=== PATIENT | male | born 1960 | race Caucasian/White ===

== ENCOUNTER 2016-10-13 10:27 | Inpatient (IN) | payer MEDICARE ==
[~2016-10-13] VITALS: Ht 193 cm; Wt 109.0 kg
[~2016-10-13 10:27] MED LIST: DIAZ2TAB PO; GABA300C PO; GLU500 PO; IBUP200T48 PO; SILD100T PO
[2016-10-13 10:29] VITALS: BP 137/90; PULSE 120; RESP 18; O2SAT 98
--- NOTE | 2016-10-13 10:37 | ED.REPORT ---
HPI-General Illness Date of Service Oct 13, 2016 ED Provider: Rich Richardson Patient is a 56 year old male with a hx of DM and HTN who presents to the ED complaining of abdominal pain onset 2 weeks ago s/p an inguinal hernia repair 2 weeks ago while on vacation in [place]. Associated symptoms include vomiting , diarrhea, chills, and generalized weakness. His pain is localized to his lower abdomen, sharp and burning in quality, waxes and wanes, wakes him from sleep, and is severe. He denies testicular pain, hematochezia, rash, itching, sore throat, chest pain, cough, hematuria, chest pain, headache, bleeding, sore throat, or any other symptoms. Patient has not been on abx recently. Nursing Notes Stated Complaint: ABDOMINAL PAIN Chief Complaint: Male Abdominal Pain Nursing Notes Reviewed: Yes Allergies: Coded Allergies: No Known Allergies (Unverified Allergy, Unknown, 04/08/15) Scheduled Gabapentin-Expunged Drug, Do Not Renew! (Neurontin-Expunged Drug, Do Not Renew! ) 300 Mg Capsule 300 MG PO BID IBUPROFEN-Expunged Drug, Do Not Renew! (IBUPROFEN-Expunged Drug, Do Not Renew!) 200 Mg Tablet 1 TAB PO Q6HP TAKE W/FOOD Metformin-Expunged Drug, Do Not Renew! (Metformin-Expunged Drug, Do Not Renew!) 500 Mg Tablet 500 MG PO BID TAKE WITH EVENING MEAL Sildenafil Citrate-Expunged Drug, Do Not Piero (Viagra-Expunged Drug, Do Not Renew!) 100 Mg Tablet 25-100 MG PO DAILYP TAKE APPR. 1 HRS B-4 SEXUAL ACTIVITY Scheduled PRN Diazepam (Valium) 2 Mg Tablet 2 MG PO TID PRN PRN For Anxiety General Time Seen by MD: 10:37 Chief Complaint Abdominal pain Hx Obtained From: Patient Arrived By: Walk-in Sudden in Onset?: Yes Onset Occurred: More than a week ago... (2 weeks) Context of Onset: Other (surgery ) Symptom Duration: Since onset Location: : Abdomen Quality: Burning, Sharp Severity: Current: Severe Severity: Maximum: Severe Associated with: Reports: Vomiting, Weakness Additional Notes: diarrhea, chills Pertinent Negative: Pt denies other symptoms Relieved by: Prescription meds Context Related History: Reports Diabetes mellitus Recent Healthcare: Recent doctor visit, Previous surgery Past Medical History Past Medical History Sleep apnea, Diabetes mellitus type 2, hypertension. DJD Past Surgical History Bilat hand surg R knee surg hernia repair Family History noncontributory Smoking History Never Smoker Social History Alcohol Use: 3-5 per day Drug Use: Denies drug use Other Social History: Local resident Ambulatory Status Independent Review of Systems Full Review of Systems Constitutional: Reports: Chills, Weakness - generalized Ears / Nose / Throat: Denies: Sore throat Respiratory: Denies: Non-productive cough Cardiovascular: Denies: Chest pain GI: Reports: Abdominal pain, Diarrhea, Denies: Hematochezia Male: Denies Hematuria, Denies Testicular pain Hematologic: Denies Bleeding Skin: Denies Rash Allergy / Immune: Denies: Itching Neurologic: Denies: Headache Complete sys rev & neg: except as marked. Physical Exam Nursing note and vitals reviewed. Constitutional: Well-developed, well-nourished. Not diaphoretic. Head: Normocephalic and atraumatic. Mouth/Throat: Oropharynx is clear and moist. No oropharyngeal exudate. Eyes: EOM are normal. Pupils are equal, round, and reactive to light. Neck: Supple, no tracheal deviation. Cardiovascular: Tachycardic, regular rhythm. Equal and intact distal pulses throughout. Pulmonary/Chest: Effort normal and breath sounds normal. No respiratory distress. Abdominal: Soft. No distension. Lower abdominal tenderness. Surgical site healing well. No rebound or guarding. I did not appreciate any inguinal hernias. Musculoskeletal: Range of motion grossly intact, moving all extremities. No edema or tenderness appreciated. Neurological: AOx3. Grossly nonfocal exam. Strength and sensation intact and equal to bilateral upper and lower extremities. Skin: Warm and dry, no rashes or pallor appreciated. Psychiatric: Appropriate mood and affect. Behavior appears normal. Vital Signs Vital Signs Date Time Temp Pulse Resp B/P Pulse Ox O2 Delivery O2 Flow Rate FiO2 10/13/16 14:33 36.7 114 16 155/91 97 Room Air 10/13/16 11:32 36.7 101 16 157/89 99 Room Air 10/13/16 10:29 36.5 120 18 137/90 98 Interpretation & Diagnostics Lab Results Interpretation Result Diagram: 10/13/16 1050 10/13/16 1050 Test 10/13/16 10:50 9/5/17 11:45 White Blood Count 10.7th/mm3 (3.8-10.1) Red Blood Count 5.20mil/mm3 (4.40-5.80) Hemoglobin 16.4g/dL (13.8-17.2) Hematocrit 44.9% (41.0-50.0) Mean Corpuscular Volume 86.3fL (81-100) Mean Corpuscular Hemoglobin 31.5pg (27.0-35.0) Mean Corpuscular Hemoglobin Concent 36.5% (32.0-37.0) Red Cell Distribution Width 13.1% (12.3-15.4) Platelet Count 238bil/L (150-400) Neutrophils (%) (Auto) 79.5% (40-74) Lymphocytes (%) (Auto) 9.3% (14-46) Monocytes (%) (Auto) 9.7% (4-12) Eosinophils (%) (Auto) 0.8% (0-5) Basophils (%) (Auto) 0.4% (0-3) Prothrombin Time 10.5sec (8.1-12.5) Prothromb Time International Ratio 0.98ratio Magnesium Level 1.3mg/dL (1.6-2.6) Urine Color Yellow (YELLOW) Urine Appearance Clear (CLEAR,HAZY) Urine pH 6.0 (5.0-8.0) Urine Specific [place] 1.025 (1.003-1.035) Urine Protein Negativemg/dL (NEG,TRACE) Urine Glucose (UA) >=1000mg/dL (NEGATIVE) Urine Ketones Negativemg/dL (NEGATIVE) Urine Occult Blood Negative (NEGATIVE) Urine Nitrite Negative (NEGATIVE) Urine Bilirubin Negative (NEGATIVE) Urine Urobilinogen Normalmg/dL (NORMAL) Urine Leukocyte Esterase Negative (NEGATIVE) Urine RBC 0-2/hpf (0-2) Urine WBC 0-5/hpf (0-5) Urine Epithelial Cells None/hpf (NONE-MOD) Urine Crystals None seen (NONE SEEN) Urine Bacteria None/hpf (NONE-FEW) Urine Hyaline Casts Occasional/lpf (NONE) Urine Granular Casts None seen (NONE SEEN) Urine Waxy Casts None seen (NONE SEEN) Urine Red Blood Cell Casts None seen (NONE SEEN) Urine White Blood Cell Casts None seen (NONE SEEN) Urine Mucus None seen (None Seen) Urine Trichomonas None seen (NONE SEEN) Urine Yeast None (NONE SEEN) Urinalysis Comment None Urine Culture Reflexed Not indicated ECG Interpretation ECG Interpretation: Sinus tachycardia rate 105 Time: 10:45 Interpreted by: ED physician X-Ray Chest Interpretation Chest Xray Interpretation: IMPRESSION: 1. No acute cardiopulmonary disease. Dictated by: Layo Guillen M.D. on 10/13/2016 at 11:18 Approved by: Layo Guillen M.D. on 10/13/2016 at 11:18 View: Portable, 1 view Interpretation / Wet Read by: Interpret - Radiologist CT Abd / Pelvis Interpretation IMPRESSION: 1. No definite acute abnormality of the abdomen or pelvis. 2. No bowel obstruction. 3. No free fluid or abscess. Additional findings: -Hepatic steatosis. -Simple left renal cyst. -Small fat containing bilateral inguinal hernias. -Degenerative changes of the imaged spine and pelvic joints. -Proximal anterior left thigh lipoma. Dictated by: Tk Sky M.D. on 10/13/2016 at 11:34 Approved by: Tk Sky M.D. on 10/13/2016 at 11:38 Study type: Abdominal CT IV contrast, Abdom CT oral contrast Interpretation / Wet Read by: Interpret - Radiologist Re-Eval/Medical Decision Med Decision/Clinical Course In summary, 56-year-old male presenting to the ED for evaluation of lower abdominal pain in the setting of recent hernia repair in [place] several weeks ago. Differential is broad and includes intra-abdominal mass/abscess, appendicitis, hernia, surgical complication, small bowel obstruction, viral illness, etc. Surgical site appears to be healing well with laparoscopic sites clean, dry, and intact. Cannot appreciate a hernia on examination. CT scan as per above, no obvious acute abnormality that would account for his symptoms at this time. He does have small, fat-containing bilateral inguinal hernias, hepatic state ptosis, a left renal cyst, and a proximal anterior left thigh lipoma; these were discussed with the patient. Laboratory studies here notable for a sodium of 127, magnesium of 1.3, lactic acid 2.5, white blood cell count of 10.7. Urinalysis not consistent with infection. Chest x-ray negative. EKG demonstrates sinus tachycardia without acute ischemic changes. Patient given IV fluids, Zofran, pain meds, and magnesium supplementation here in the emergency department. After several liters of IV fluids, no improvement in symptoms and remains tachycardic. Abdomen remains tender. He has had some diarrhea with these symptoms and may have a viral illness, however in the setting of significant dehydration, inability to tolerate by mouth intake, as well as the above metabolic abnormalities, plan admission for further management and evaluation. Stool PCR ordered and pending. Patient agreeable to the plan as stated, no further questions. Time of Eval: 14:06 Re-Evaluation/Progress Note: Discussed plan for admission. Patient understands and agrees with plan. All questions addressed at this time. Consultation : Referral / Consult Name: Annette Win MD Consulted With: Hospitalist Call Returned at: 14:42 Parcel Contractor: Will see patient, Agrees with eval, Agrees with plan, Accepts admit Note: Discussed pt's case. Accepts admit. Counseled Regarding: Diagnosis, Lab results, Need for admission Discharge & Departure Primary Impression: Hypernatremia Additional Impressions: Hypomagnesemia Nausea vomiting and diarrhea Dehydration Disposition: ADMITTED TO HOSPITAL Discharge Condition All VS Reviewed: Yes Condition: Stable Referrals: Jin Contreras MD (PCP) Margaritoibkendall Attestation Portions of this note were transcribed by Chase Ortiz. I, Dr. Richardson personally performed the history, physical exam and medical decision-making; I reviewed and confirmed the accuracy of the information in the transcribed note. Signed by: Tari Winslow, 10/13/16 copies to: Jin Contreras MD, William B MD Oct 13, 2016 10:37 CHASE ORTIZ Oct 13, 2016 11:49 1. No definite acute abnormality of the abdomen or pelvis. 2. No bowel obstruction. 3. No free fluid or abscess. Additional findings: -Hepatic steatosis. -Simple left renal cyst. -Small fat containing bilateral inguinal hernias. -Degenerative changes of the imaged spine and pelvic joints. -Proximal anterior left thigh lipoma. Dictated by: Tk Sky M.D. on 10/13/2016 at 11:34 Approved by: Tk Sky M.D. on 10/13/2016 at 11:38 Study type: Abdominal CT IV contrast, Abdom CT oral contrast Interpretation / Wet Read by: Interpret - Radiologist Re-Eval/Medical Decision Med Decision/Clinical Course given MG, fluids, pain meds, zofran. ekg: Sinus tachycardia rate [address] ABD PELVIS: IMPRESSION: 1. No definite acute abnormality of the abdomen or pelvis. 2. No bowel obstruction. 3. No free fluid or abscess. Additional findings: -Hepatic steatosis. -Simple left renal cyst. -Small fat containing bilateral inguinal hernias. -Degenerative changes of the imaged spine and pelvic joints. -Proximal anterior left thigh lipoma. labs: na 127 anion gap 17 glucose 235 lactic 2.5 mg 1.3 WBC 10.7 UA neg infection Time of Eval: 14:06 Re-Evaluation/Progress Note: Discussed plan for admission. Patient understands and agrees with plan. All questions addressed at this time. Consultation : Referral / Consult Name: Annette Win MD Consulted With: Hospitalist Call Returned at: 14:42 Parcel Contractor: Will see patient, Agrees with eval, Agrees with plan, Accepts admit Note: Discussed pt's case. Accepts admit. Counseled Regarding: Diagnosis, Lab results, Need for admission Discharge & Departure Primary Impression: Hypernatremia Additional Impressions: Hypomagnesemia Nausea vomiting and diarrhea Dehydration Disposition: ADMITTED TO HOSPITAL Discharge Condition All VS Reviewed: Yes Condition: Stable Referrals: Jin Contreras MD (PCP) Tari Attestation Portions of this note were transcribed by Chase Ortiz. I, Dr. Richardson personally performed the history, physical exam and medical decision-making; I reviewed and confirmed the accuracy of the information in the transcribed note. Signed by: Tari Winslow, 10/13/16 copies to: Jin Contreras MD, William B MD Oct 13, 2016 10:37 CHASE ORTIZ Oct 13, 2016 11:49
[2016-10-13] MEDS ORDERED: 0.9% Sodium Chloride 1,000 ML IV ONE ×2 (10:38→14:10)
[2016-10-13] MEDS ORDERED: Ondansetron 2 mg/mL 2 mL Inj ONE (10:39)
[2016-10-13 11:02] LABS: BASOPHILS % (AUTO) 0.4 % (0-3); EOSINOPHILS % (AUTO) 0.8 % (0-5); MONOCYTES % (AUTO) 9.7 % (4-12); Mean Corpuscular Hemoglobin 31.5 pg (27.0-35.0); Mean Corpuscular Volume 86.3 fL (81-100); NEUTROPHILS % (AUTO) 79.5 % (40-74); Platelet Count 238 bil/L (150-400)
[2016-10-13] MEDS: Ondansetron 2 mg/mL 2 mL Inj IVPUSH PRN ×3 (11:03→14:36)
--- NOTE | 2016-10-13 11:20 | DRSVH ---
PROCEDURE: X-RAY CHEST ONE VIEW, PORTABLE ([id number]) INDICATIONS: abd pain, recent hernia repair TECHNIQUE: One view of the chest was acquired. COMPARISON: [facility], , CHEST 2VW, 01/02/2014, 20:51. FINDINGS: Surgical changes and devices: None. Lungs and pleura: No pleural effusions or pneumothorax. Lungs are clear. Mediastinum: Mediastinal contours appear normal. Heart size is normal. Bones and chest wall: No suspicious bony lesions. Overlying soft tissues appear unremarkable. IMPRESSION: 1. No acute cardiopulmonary disease. Dictated by: Layo Guillen M.D. on 10/13/2016 at 11:18 Approved by: Layo Guillen M.D. on 10/13/2016 at 11:18
[2016-10-13 11:32] VITALS: BP 157/89; PULSE 101; RESP 16; O2SAT 99
[2016-10-13 11:37] LABS: INR 0.98 ratio
[2016-10-13 11:44] LABS: Magnesium 1.3 mg/dL (1.6-2.6)
[2016-10-13 12:23] LABS: APPEARANCE,URINE CLEAR (CLEAR,HAZY); COLOR,URINE YELLOW (YELLOW); OCCULT BLOOD,URINE NEGATIVE (NEGATIVE)
[2016-10-13 12:24] LABS: UROBILINOGEN,URINE NORMAL (NORMAL)
--- NOTE | 2016-10-13 12:40 | DRSVH ---
PROCEDURE: CT ABDOMEN AND PELVIS WITH CONTRAST ([id number]) INDICATIONS: severe abd pain, recent hernia surgery TECHNIQUE: After the administration of oral and intravenous contrast, 5 mm thick sections acquired from the diap hragms to the symphysis. 5 mm thick coronal and sagittal reformats were performed. For radiation do se reduction, the following was used: automated exposure control, adjustment of mA and/or kV accordi ng to patient size. COMPARISON: [facility], CT, CT ABD PELVIS WO CON, 09/30/2014, 11:43. FINDINGS: Image quality: Diagnostic. ABDOMEN: Lung bases: Lung bases are clear. Heart size is normal. Solid organs: The liver is hypodense when compared to the spleen. Kidneys are normal in size. Mild perinephric edema is present. A simple superior left renal cyst is noted. The pancreas and adrenals are within normal limits. Peritoneum and bowel: The stomach, duodenum, and remainder of the small bowel loops are nondilated. The colon is relatively decompressed. There is no free fluid, loculated fluid collection or free air . Nodes and vessels: No retroperitoneal or mesenteric adenopathy. Aorta and inferior vena cava are no rmal in caliber. There is mild aortic atherosclerosis. Bones: Straightening of the normal lumbar lordosis is present. There are mild/moderate degenerative changes of the lumbar spine. No acute fracture or suspicious osseous lesion is evident. PELVIS: Genitourinary: Bladder wall thickness is normal. Miscellaneous: There are small fat containing bilateral inguinal hernias. No free fluid, loculated f luid collection or lymphadenopathy. No free air. Incidental note is made of a 3.3 x 4.8 cm lipomato us lesion along the anterior margin of the left upper thigh within the intertrochanteric region, whic h probably is not significantly changed, given differences in imaging technique since the prior study . Bones: No suspicious bony lesions. No acute pelvic fractures are evident. There are moderate degen erative changes of the sacroiliac joints and mild to moderate degenerative changes of bilateral hips and pubis symphysis. IMPRESSION: 1. No definite acute abnormality of the abdomen or pelvis. 2. No bowel obstruction. 3. No free fluid or abscess. Additional findings: -Hepatic steatosis. -Simple left renal cyst. -Small fat containing bilateral inguinal hernias. -Degenerative changes of the imaged spine and pelvic joints. -Proximal anterior left thigh lipoma. Dictated by: Tk Sky M.D. on 10/13/2016 at 11:34 Approved by: Tk Sky M.D. on 10/13/2016 at 11:38
[2016-10-13] MEDS ORDERED: Magnesium Sulf 2 Gm/50mL Water 2 GM in IV Premix 1 EACH IV ONE (14:10)
[2016-10-13 14:33] VITALS: BP 155/91; PULSE 114; RESP 16; O2SAT 97
[2016-10-13 15:45] VITALS: BP 142/85; PULSE 106; RESP 16; O2SAT 94
[2016-10-13] MEDS ORDERED: Ondansetron 8 mg ODT Tablet PO PRN (16:15)
[2016-10-13] MEDS: 0.9% Sodium Chloride 1,000 ML IV SCH (16:15)
[2016-10-13] MEDS ORDERED: Glucose 40% Oral Gel 15 Gm Tube PO PRN (16:35)
[2016-10-13] MEDS ORDERED: Dextrose 10% 250 ML IV PRN (16:55)
[2016-10-13] MEDS: HYDROmorphone 1 mg/mL Inj IVPUSH PRN ×2 (17:17→22:26)
[2016-10-13] MEDS: Insulin LISPRO 300 Unit/3 mL Inj SUBQ SCH ×2 (17:30→22:00)
--- NOTE | 2016-10-13 17:51 | NUR ---
Social Work Note: Initial Assessment Data& Assessment: EMR reviewed. SUPERVISOR FISH HATCHERY met with pt at bedside to discuss discharge plan and assess for any unmet needs, SUPERVISOR FISH HATCHERY role explained Discharge Planning Checklist provided.Diana Wylie is a 56 year old male admitted on 10/13/2016 for hypernatremia. Pt has [facility] [place] Medicare insurance coverage and sees Jin Contreras MD for primary care. Pt lives in [place] with his spouse and is independent with all ADL's at baseline with no DME needs. Pt does not have HH or SNF hx. Pt does not have LTC insurance or VA benefits. Pt has DPOA/AD paperwork completed, SUPERVISOR FISH HATCHERY requested a copy when possible. Pt transporting pt home at time of discharge. Pt denies any other needs. MD does not identify any concerns for pt capacity for self care. Plan: Anticipated discharge home via POV when medically ready. Pt denies any other needs. No other discharge needs or MD orders identified at this time. SUPERVISOR FISH HATCHERY to continue to follow if any needs arise. HAYDEN Barakat Addendum: 10/13/16 at 1753 by ERIN REYNA Amended: Links added.
--- NOTE | 2016-10-13 18:33 | DRSVH ---
PROCEDURE: US ABDOMEN, LIMITED ([id number]) INDICATIONS: RUQ tenderness TECHNIQUE: Real-time focused scanning was performed of the abdomen, with image documentation. COMPARISON: [facility] Ul[facility]ound, US, [employer], 10/13/2013, 12:57. FINDINGS: Liver: Homogeneously increased echogenicity. No hepatic masses. Gallbladder: No cholelithiasis. Normal gallbladder wall thickness. No pericholecystic fluid. Negative sonographic Bravo's sign. Biliary system: No intra-or extrahepatic biliary ductal dilatation. Pancreas: Normal where seen. Kidneys: Right kidney measures 14.0 CM with cortex measuring 1.1 CM. No hydronephrosis or ureterectas is. No renal or ureteral calculi. IMPRESSION: 1. No sonographic evidence of acute cholecystitis. There is persistent clinical concern for cholecyst itis recommend HIDA scan. 2. Fatty infiltrated liver. Dictated by: Jorge Mahmood M.D. on 10/13/2016 at 18:28 Approved by: Jorge Mahmood M.D. on 10/13/2016 at 18:31
--- NOTE | 2016-10-13 19:15 | NUR ---
Admit Pt arrived at 1530 to MOC 246 via WC. Pt ambulates easily to bed independently, pt is a&ox3, time taken to orient patient to room and call light, pt will call w/ any needs.
--- NOTE | 2016-10-13 19:33 | PCM.HPMED ---
Subjective Date of Service Oct 13, 2016 Primary Provider: Admitting Physician: Annette Win MD Primary Care Physician: Jin Contreras MD Attending Physician: Annette Win MD Admit Status: From the Emergency Department, Admit to [place] Team Chief Complaint: Abdominal pain History of Present Illness: Mr. Wylie is a 56-year-old male with past medical history of diabetes mellitus type II, hypertension and recent umbilical hernia repair 2 weeks ago presents to the ED secondary to abdominal pain, nausea vomiting diarrhea 2 weeks. Patient was vacationing in [facility] 2 weeks ago when he developed nausea vomiting abdominal pain with the umbilical protrusion. He was seen in the emergency department, admitted into surgery for a umbilical hernia repair with mesh placement. He states that since the surgery he has had persistent abdominal pain with nausea vomiting 3 times per day and diarrhea about 5 times per day. Neither vomitus or stool has shown any evidence of blood he reports them to be watery. He reports a couple of fever/chills over the last 2 weeks at home though has not taken his temperature (no sick contacts at home) reports a mild headache that is persistent as well as ongoing lethargy. Patient had been tolerating this pain completely unmedicated until his forced him to present to the urgent care today which she was subsequently transferred to the emergency department. He, denies visual changes, chest pain, shortness of breath, numbness and tingling in his extremities. He does state he has had a decreased amount of urine over the last 3 days which he attributes to his dehydration and poor oral intake. He has had a upper extremity shaking for the last day or so which she also attributes to his diarrhea. He has not taken any of his home medication secondary to the sickness. No recent antibiotic use. In the emergency department his sodium was 127, magnesium 1.3 with a lactic acid of 2.5. White blood cell count mildly elevated at 10.7. Urinalysis was clear. X-ray negative for acute pathology, EKG showed sinus tachycardia without ST abnormalities. Fluid resuscitation, Zofran and pain meds as well as fluctuance of dictation. He remained tachycardic after several liters of IV fluids with a persistently tender abdomen. Patient was admitted for electrolyte abnormalities secondary to dehydration, possible gastroenteritis and to rule out postsurgical infection. Review of Systems: A comprehensive review of systems was conducted with the patient and found to be negative except as above in the history of present illness. Allergies Coded Allergies: No Known Allergies (Unverified Allergy, Unknown, 04/08/15) Home Medications Med rec.completed at time of dictation Her outpatient active medication list: Gabapentin 300 mg capsule, take 3-4 capsules by mouth every day at bedtime Fluticasone 50 g 2 sprays intranasal every day in each nostril Glipizide 5 mg tablets twice a day Methocarbamol 750 mg every 4 Tamsulosin 0.4 mg daily Ketoconazole 2% topical cream. Sulfamethoxazole 800 mg trimethoprim 160 mg twice a day Ranitidine 300 mg twice a day Diazepam 2 mg twice a day when necessary Ondansetron 8 mg every 8 when necessary Testosterone Seip and a 20 mg/millimeter intramuscular oral inject 1/2 mL by intramuscular route every week Metformin 500 mg twice a day Lisinopril 20 mg hydrochlorothiazide 25 mg daily PMH Diabetes mellitus type 2 Hypertension. Degenerative disc disease Reports sleep apnea Surgical History Right foot surgery Left knee replacement Right knee surgery Bilateral hand surgery Umbilical hernia repair Family History Mother with diabetes Father passed from congestive heart failure Social History Hx Alcohol Use: Yes (DAILY) Hx Substance Use: No Smoking Status: Never Smoker Living Arrangement: with Family Exam Vital Signs Vital Sign - Last Date Time Temp Pulse Resp B/P Pulse Ox O2 Delivery O2 Flow Rate FiO2 10/13/16 14:33 36.7 114 16 155/91 97 Room Air Exam General: No acute distress, well-developed, well-nourished, appropriately interactive HEENT: Normocephalic, atraumatic. External ears without defect. Pupils equal, round, and reactive to light and accommodation. Anicteric sclerae, moist conjunctivae, and no lid lag. Oropharynx free of erythema and cobble stoning with moist mucosa. Neck: Supple with full range of motion. No jugular venous distension. No bruits. No lymphadenopathy or thyromegaly. Cardiovascular: Regular rate and rhythm with no murmurs, rubs, or gallops appreciated Pulmonary: Clear to auscultation bilaterally with no crackles, wheezes, or rhonchi. Normal respiratory effort with no use of accessory muscles. Abdomen: Bowel tones present. Soft, nontender, nondistended. No hepatosplenomegaly or masses appreciated. Extremities: No clubbing, cyanosis, edema, or lymphadenopathy appreciated. Skin: Normal temperature, turgor, and texture; no rash, ulcers, or subcutaneous nodules appreciated. Neurological: Cranial nerves grossly intact. Normal muscle strength, tone, and bulk. Reflexes, coordination, and sensory function within normal limits. No known gait impairment. Psychiatric: Normal mood and affect. Alert and oriented to person, place, and time. Lab and Diagnostics Result Diagram: 10/13/16 1050 10/13/16 1050 X-Rays, CTs and MRIs . US ABDOMEN, LIMITED IMPRESSION: 1. No sonographic evidence of acute cholecystitis. There is persistent clinical concern for cholecystitis recommend HIDA scan. 2. Fatty infiltrated liver. Dictated by: Jorge Mahmood M.D. on 10/13/2016 X-RAY CHEST ONE VIEW, PORTABLE IMPRESSION: 1. No acute cardiopulmonary disease. Dictated by: Layo Guillen M.D. on 10/13/2016 CT ABDOMEN AND PELVIS WITH CONTRAST IMPRESSION: 1. No definite acute abnormality of the abdomen or pelvis. 2. No bowel obstruction. 3. No free fluid or abscess. Additional findings: -Hepatic steatosis. -Simple left renal cyst. -Small fat containing bilateral inguinal hernias. -Degenerative changes of the imaged spine and pelvic joints. -Proximal anterior left thigh lipoma. Dictated by: Tk Sky M.D. on 10/13/2016 Assessment & Plan Mr. Wylie is a 56-year-old male with past medical history of diabetes mellitus type II, hypertension and recent umbilical hernia repair 2 weeks ago admitted for persistent nausea vomiting diarrhea with accompanying abdominal pain. Possible gastroenteritis, present on admission. Under evaluation Denies other sick contacts though recent hospital admission for umbilical hernia surgery repair concern for C. difficile -Stool PCR pending -Blood cultures pending -Continue IVF -Zofran when necessary -Continue pain medications Possible postsurgical infection, present on admission. Under evaluation Patient had umbilical hernia repair 2 weeks prior with mesh placement, has felt increasingly sore and tender since. The patient is afebrile with a mildly elevated white count, and the presence of persistent tachycardia as well as a resistant mildly elevated lactic acid, will go ahead and start antibiotics -Consider tagged white cell scan -Started Zosyn 3.375 g IV every 8 -Cultures as above Hyponatremia. Present admission. Ongoing Most likely secondary to dehydration -IV fluids as above Lactic acidosis. Present admission. Ongoing -IV fluids as above -Continue to trend Hypertension. Present on admission. Ongoing -Hold home medications as hemodynamic status is mildly hypertensive Diabetes. Present admission. Ongoing -Correctional scale insulin -A1c pending Possible pancreatitis. Present on admission. Ongoing Patient states daily alcohol use -Lipase 46 on admit, repeat level 160 -Continue to monitor Anxiety with musculoskeletal manifestations. Present on admission. Ongoing Per outpatient records diazepam prescribed for muscle spasm -Continue home diazepam Patient Status: Patient was admitted under inpatient status with expected length of stay greater than two midnights due to severity of presenting symptoms , risk of adverse event, and complexity of treatment plan. CODE STATUS: Patient wishes to be full code Pain Evaluation: Adequate Pain Control GI Prophylaxis: H2 mayra VTE Prophylaxis: Sub-Q Heparin (Unfractionated) Resuscitation Status: CPR: Attempt Resuscitation (heparin) ANDRA ANDRES DO Oct 13, 2016 17:12
[2016-10-13] MEDS: Heparin 5,000 Unit/mL Inj SUBQ SCH (20:32)
[2016-10-13] MEDS: Piperacillin-Tazo 3.375 Gm Inj 3.375 GM in Dextrose 5% Minibag Plus 50 ML IV SCH (20:32)
--- NOTE | 2016-10-13 20:57 | PCM.PNMED ---
Subjective Date of Service Oct 14, 2016 Subjective This a 56 yo male with PMH of DM II and HTN, recent umbilical hernia repair, came to ED w c/o n/v/d and dehydration. Magnesium and sodium were low,was repleted and was improving. [place]. Stool PCR was neg. AG was trending down 17->15. He does have lactic acidosis He says his nausea has resolved since coming to the floor, but diarrhea is continuing to bother him. He is endorsing pain around his umbilicus. Exam Vital Signs Vital Sign - Last Date Time Temp Pulse Resp B/P Pulse Ox O2 Delivery O2 Flow Rate FiO2 10/13/16 15:45 37.0 106 16 142/85 94 Room Air Exam Vital signs: Noted at 6 AM on 10/14/16 temperature 36.8 Celsius, pulse 80, respirations 16, blood pressure 152/102, pulse ox 94% on room air General: No acute distress, well-developed, well-nourished, appropriately interactive HEENT: Normocephalic, atraumatic. Neck: Supple with full range of motion. No jugular venous distension. No bruits. Cardiovascular: Regular rate and rhythm with no murmurs, rubs, or gallops appreciated Pulmonary: Clear to auscultation bilaterally with no crackles, wheezes, or rhonchi. Normal respiratory effort with no use of accessory muscles. Abdomen: Bowel tones present. Soft, tenderness over umbilicus, mild right upper quadrant tenderness, nondistended. No hepatosplenomegaly or masses appreciated. Extremities: No clubbing, cyanosis, edema, or lymphadenopathy appreciated. Skin: Normal temperature, warm and dry Neurological: No focal deficit Psychiatric: Normal mood and affect. Alert and oriented to person, place, and time. IVs and Medications IV Fluids Normal saline 150 mL per hour Medications Reviewed: Medications were reviewed in detail Lab and Diagnostics Laboratory Tests Test 10/13/16 23:51 10/14/16 06:42 10/14/16 09:57 10/14/16 16:52 Erythrocyte Sedimentation Rate 6mm/hr (0-30) 5mm/hr (0-30) Lactic Acid Level 3.3mmol/L (0.4-2.0) 2.2mmol/L (0.4-2.0) 3.1mmol/L (0.4-2.0) 2.7mmol/L (0.4-2.0) White Blood Count 4.7th/mm3 (3.8-10.1) Red Blood Count 4.04mil/mm3 (4.40-5.80) Hemoglobin 12.8g/dL (13.8-17.2) Hematocrit 36.6% (41.0-50.0) Mean Corpuscular Volume 90.6fL (81-100) Mean Corpuscular Hemoglobin 31.7pg (27.0-35.0) Mean Corpuscular Hemoglobin Concent 35.0% (32.0-37.0) Red Cell Distribution Width 13.3% (12.3-15.4) Platelet Count 184bil/L (150-400) Neutrophils (%) (Auto) 68.3% (40-74) Lymphocytes (%) (Auto) 17.2% (14-46) Monocytes (%) (Auto) 9.4% (4-12) Eosinophils (%) (Auto) 4.5% (0-5) Basophils (%) (Auto) 0.4% (0-3) Sodium Level 136mEq/L (134-144) Potassium Level 4.2mEq/L (3.5-5.2) Chloride Level 98mEq/L (97-108) Carbon Dioxide Level 25mmol/L (18-29) Blood Urea Nitrogen 17mg/dL (6-24) Creatinine 1.21mg/dL (0.76-1.27) Estimat Glomerular Filtration Rate 65mL/min (>59) Glucose Level 216mg/dL (60-99) Calcium Level 8.3mg/dL (8.5-10.1) Magnesium Level 1.6mg/dL (1.6-2.6) Total Bilirubin 1.0mg/dL (0.0-1.2) Aspartate Amino Transf (AST/SGOT) 14U/L (0-50) Alanine Aminotransferase (ALT/SGPT) 16U/L (0-44) Alkaline Phosphatase 82U/L (25-150) C-Reactive Protein 0.1mg/dL (0.0-0.5) Total Protein 6.0g/dL (6.4-8.4) Albumin 3.5g/dL (3.4-5.0) Lipase 37U/L (13-60) Microbiology 10/13/16 Blood Culture - Preliminary, Resulted NO GROWTH AFTER 24 HOURS 10/14/16 Campylobacter (PCR) - Final, Complete Not Detected 10/14/16 Clostridium difficile Toxin A&B (M) - Final, Complete Not Detected 10/14/16 Plesiomonas shigelloides (PCR) - Final, Complete Not Detected 10/14/16 Salmonella (PCR)(CLYDE) - Final, Complete Not Detected 10/14/16 Yersinia enterocolitica (PCR) - Final, Complete Not Detected 10/14/16 Vibrio Species (PCR) - Final, Complete Not Detected 10/14/16 Vibrio Cholerae (PCR) - Final, Complete Not Detected 10/14/16 Enteroaggregative E. coli (PCR) - Final, Complete Not Detected 10/14/16 Enteropathogenic E. coli (PCR) - Final, Complete Not Detected 10/14/16 Enterotoxigenic E. coli (PCR) - Final, Complete Not Detected 10/14/16 E. coli Shiga-like Toxin (PCR) - Final, Complete Not Detected 10/14/16 Escherichia coli 0157 (PCR) - Final, Complete Not Detected 10/14/16 Enteroinvasive E. coli/Shigella PCR - Final, Complete Not Detected 10/14/16 Cryptosporidium (PCR) - Final, Complete Not Detected 10/14/16 Cyclospora cayetanensis (PCR) - Final, Complete Not Detected 10/14/16 Entamoeba histolytica (PCR) - Final, Complete Not Detected 10/14/16 Giardia lamblia (PCR) - Final, Complete Not Detected 10/14/16 Adenovirus Type F 40/41 (PCR) - Final, Complete Not Detected 10/14/16 Astrovirus (PCR) - Final, Complete Not Detected 10/14/16 Norovirus (PCR) - Final, Complete Not Detected 10/14/16 Rotavirus A (PCR) - Final, Complete Not Detected 10/14/16 Sapovirus I/II/IV/V (PCR) - Final, Complete Result Diagram: 10/13/16 1050 10/13/16 1710 X-Rays, CTs and MRIs . US ABDOMEN, LIMITED IMPRESSION: 1. No sonographic evidence of acute cholecystitis. There is persistent clinical concern for cholecystitis recommend HIDA scan. 2. Fatty infiltrated liver. Dictated by: Jorge Mahmood M.D. on 10/13/2016 X-RAY CHEST ONE VIEW, PORTABLE IMPRESSION: 1. No acute cardiopulmonary disease. Dictated by: Layo Guillen M.D. on 10/13/2016 CT ABDOMEN AND PELVIS WITH CONTRAST IMPRESSION: 1. No definite acute abnormality of the abdomen or pelvis. 2. No bowel obstruction. 3. No free fluid or abscess. Additional findings: -Hepatic steatosis. -Simple left renal cyst. -Small fat containing bilateral inguinal hernias. -Degenerative changes of the imaged spine and pelvic joints. -Proximal anterior left thigh lipoma. Dictated by: Tk Sky M.D. on 10/13/2016 Assessment & Plan Mr. Wylie is a 56-year-old male with past medical history of diabetes mellitus type II, hypertension and recent umbilical hernia repair 2 weeks ago admitted for persistent nausea vomiting diarrhea with accompanying abdominal pain. Possible postsurgical infection, present on admission. Under evaluation Patient had umbilical hernia repair 2 weeks prior with mesh placement, has felt increasingly sore and tender since. At admission, The patient was afebrile with a mildly elevated white count, and the presence of persistent tachycardia as well as a resistant mildly elevated lactic acid, antibiotics were started d/t concern for skin/soft tissue infection. Had an aG of 17->15 on the day of admission. -Consider tagged white cell scan, general surgery consult -Started Zosyn 3.375 g IV every 8 -Cultures as above -ESR/CRP are ordered RUQ Pain present on admission ongoing active -- No evidence of cholelithiasis or cholecystitis -- HIDA scan is ordered, normal ejection fraction Elavted Lipase, Present on admission under investigation Patient states daily alcohol use -Continue to monitor -GGT is ordered -Lipids normalized on 10/14 46-160-37 --Consider MRCP as this may be the reason why he is nauseated and has abdominal pain. Possible gastroenteritis, present on admission. Under evaluation Denies other sick contacts though recent hospital admission for umbilical hernia surgery repair concern for C. difficile -Stool PCR negative -Blood culturesare NGTD -Continue IVF -Zofran when necessary -Continue pain medications -- Loperamide when necessary is ordered Lactic acidosis. Present admission. improving -IV fluids as above -Continue to trend Hyponatremia. Present admission. Resolved - Most likely secondary to dehydration -IV fluids as above Hypertension. Present on admission. Ongoing -Hold home medications as renal function is slightly worse -A total of 10 mg of amlodipine is given Diabetes. Present admission. Ongoing -Correctional scale insulin -A1c pending Possible pancreatitis. Present on admission. ruled out -- Pt had elevated lipase but does not meet the criteria for pancreatitis as it is not three times the max Anxiety with musculoskeletal manifestations. Present on admission. Ongoing Per outpatient records diazepam prescribed for muscle spasm -Continue home diazepam High risk medication: Dilaudid, Valium Patient Status: Patient was admitted under inpatient status with expected length of stay greater than two midnights due to severity of presenting symptoms , risk of adverse event, and complexity of treatment plan. CODE STATUS: Patient wishes to be full code GI Prophylaxis: H2 mayra VTE Prophylaxis: Sub-Q Heparin (Unfractionated) Resuscitation Status: CPR: Attempt Resuscitation (heparin) Time spent 25 min Manuela Mitchell DO Oct 13, 2016 20:57
[2016-10-13 22:30] VITALS: BP 152/102; PULSE 95; RESP 16; O2SAT 94
[2016-10-14] MEDS: Heparin 5,000 Unit/mL Inj SUBQ SCH ×3 (00:30→16:42)
[2016-10-14] MEDS: Piperacillin-Tazo 3.375 Gm Inj 3.375 GM in Dextrose 5% Minibag Plus 50 ML IV SCH ×3 (00:31→16:41)
[2016-10-14] MEDS: 0.9% Sodium Chloride 1,000 ML IV SCH ×2 (02:38→10:45)
[2016-10-14] MEDS: HYDROmorphone 1 mg/mL Inj IVPUSH PRN ×4 (02:44→20:14)
--- NOTE | 2016-10-14 05:27 | NUR ---
GI/PAIN Assumed pt. care at 1930, A&O. cooperative to staff and care, c/o abd pain, administered prn IV dilaudid with a good relief, no N/V noted at this time, Pt. had a soft BM, stool sample sent to lab, awaiting results, Abx. running, vitals stable, will continue to monitor.
[2016-10-14 06:03] VITALS: BP 151/87; PULSE 80; RESP 16; O2SAT 96
[2016-10-14 07:14] LABS: BASOPHILS % (AUTO) 0.4 % (0-3); EOSINOPHILS % (AUTO) 4.5 % (0-5); MONOCYTES % (AUTO) 9.4 % (4-12); Mean Corpuscular Hemoglobin 31.7 pg (27.0-35.0); Mean Corpuscular Volume 90.6 fL (81-100); NEUTROPHILS % (AUTO) 68.3 % (40-74); Platelet Count 184 bil/L (150-400)
[2016-10-14 07:27] LABS: Magnesium 1.6 mg/dL (1.6-2.6)
[2016-10-14] MEDS: Insulin LISPRO 300 Unit/3 mL Inj SUBQ SCH ×4 (08:04→21:05)
[2016-10-14 08:14] LABS: ERYTHROCYTE SEDIMENTATION RATE 5 mm/hr (0-30)
[2016-10-14 10:00] VITALS: BP 153/83; PULSE 85; RESP 18; O2SAT 97
[2016-10-14] MEDS: Insulin GLARgine 100 Unit/mL Syringe SUBQ SCH (11:53)
[2016-10-14] MEDS ORDERED: 0.9% Sodium Chloride 1,000 ML IV ONE ×2 (13:25→18:55)
--- NOTE | 2016-10-14 13:30 | NUR ---
JIMMY/Pain Patient out of the unit for HIDA Scan, patient placed on NPO and narcotics withheld until procedure will be done, agreeable with plan. Pain level of 6-8/10 this shift, managed with IV Dilaudid with relief. Patient tolerating clear liquids but wishes to have a regular diet once permitted. Will continue to monitor at this time.
[2016-10-14 15:30] VITALS: BP 154/90; PULSE 85; RESP 18; O2SAT 97
--- NOTE | 2016-10-14 16:17 | DRSVH ---
PROCEDURE: NM HIDA SCAN WITH CCK PHARMACEUTICAL: 5.6 mCi Tc-99m mebrofenin IV; 2.2 mcg CCK IV. INDICATIONS: 56 year-old male with right upper quadrant abdominal pain and nausea. TECHNIQUE: Following intravenous administration of Tc-99m mebrofenin, sequential anterior abdominal images were obtained. To evaluate the contractile response of the gallbladder in response to Cholecystokinin (CC K), sincalide (0.02 g/kg) was administered by slow intravenous infusion approximately 60 minutes aft er the administration of the radiopharmaceutical. Sequential imaging was continued for [address] the start of CCK infusion. Gallbladder ejection fraction was calculated. COMPARISON: [facility], US, ABDOMEN LTD, 10/13/2016, 17:17. [facility], CT, CT ABD PELVIS W CON, 10/13/2016, 12:07. FINDINGS: Biliary scan: There is normal tracer uptake and excretion by the liver. There is normal visualizati on of the intrahepatic ducts, common bile duct, and gallbladder. There is normal tracer transit into the duodenum. CCK stimulation: There is normal contractile response of the gallbladder to CCK infusion. The calcu lated gallbladder ejection fraction is 99%; normal values are above 35%. It has been shown that any patient abdominal pain after CCK administration is related to the rate of CCK injection, rather than to any underlying gallbladder disease (Clinical Nuclear Medicine 2012; 37: 63-70. Journal of Nuclear Medicine 2014; 55: 1-9). IMPRESSION: Normal gallbladder ejection fraction; no scintigraphic explanation for right upper quadra nt abdominal pain. Dictated by: Taqueria Mcdowell M.D. on 10/14/2016 at 16:12 Approved by: Taqueria Mcdowell M.D. on 10/14/2016 at 16:15
[2016-10-14] MEDS ORDERED: Loperamide 1 mg/5 mL 120 mL Liquid PO PRN (16:35)
[2016-10-14] MEDS ORDERED: Loperamide 1 mg/5 mL 120 mL Liquid PO ONE (16:35)
[2016-10-14] MEDS ORDERED: METF500T4 PO (18:06)
[2016-10-14] MEDS ORDERED: GABA-502 PO (18:06)
[2016-10-14] MEDS ORDERED: IBUP200C PO (18:06)
--- NOTE | 2016-10-14 19:37 | ABG ---
DateTimeAnalyzed 19:29:00 -_ pH ____7.423 - 7.320 7.420 pCO2 ___43.2__ -mmHg 41.0 51.0 pO2 ___31.2__ -mmHg 24.0 40.0 HCO3- ___27.7__ -mmol/L ABE ____3.3__ -mmol/L tHb ___13.4__ -g/dL 12.0 18.0 O2Hb ___60.3__ -% COHb ____2.0__ -% 0.0 1.5 MetHb ____0.9__ -% 0.4 1.5 sO2 ___62.1__ -% FIO2 ___21.0__ -% Drawn By LT - Date/Time Notified____ 19:36:00 -_ Notified By LT - Notified Whom RN - B 755 -mmHg tO2 ___11.4__ -Vol% Jean Claude test N/A -
[2016-10-14 20:32] VITALS: BP 151/88; PULSE 104; O2SAT 96
[2016-10-15] MEDS: HYDROmorphone 1 mg/mL Inj IVPUSH PRN ×3 (00:02→08:16)
[2016-10-15] MEDS: Heparin 5,000 Unit/mL Inj SUBQ SCH ×2 (00:02→08:14)
[2016-10-15] MEDS: Piperacillin-Tazo 3.375 Gm Inj 3.375 GM in Dextrose 5% Minibag Plus 50 ML IV SCH (00:02)
[2016-10-15] MEDS: 0.9% Sodium Chloride 1,000 ML IV SCH ×2 (00:04→12:39)
[2016-10-15 00:22] VITALS: BP 150/83; PULSE 91; RESP 16; O2SAT 95
[2016-10-15 04:27] VITALS: BP 158/88; PULSE 94; RESP 16; O2SAT 95
--- NOTE | 2016-10-15 05:33 | NUR ---
Pain/Education c/o low abdominal and right flank pain x3 this shift. Prn Dilaudid and Valium administered and effective per patient. Patient and with several questions regarding plan of care, medications, and labs. Significant time spent explaining lab values, medications and the current plan per MD note. Patient and deny further questions and education at this time from nursing. Both are encouraged to ask questions and stay involved in the plan of care.
[2016-10-15] MEDS ORDERED: HYDROcodone-APAP 7.5-325 mg Tablet PO PRN (08:05)
[2016-10-15] MEDS: Insulin LISPRO 300 Unit/3 mL Inj SUBQ SCH ×2 (08:13→12:00)
[2016-10-15] MEDS: Insulin GLARgine 100 Unit/mL Syringe SUBQ SCH (08:15)
[2016-10-15 08:30] VITALS: BP 156/90; PULSE 85; RESP 18; O2SAT 97
--- NOTE | 2016-10-15 10:05 | NUR ---
Social Work- Readiness for Discharge /Multidisciplinary Rounds Data: EMR reviewed. Pt is on day 2 of hospitalization. Pt discussed with this AM, pt is likely to discharge today. No orders are active at this time. SW met with pt at bedside to confirm d/c plan, pt to discharge home with his to transport via POV. No discharge needs identified at this time, SW will continue to follow. Assessment: Pt who is independent with ADLs and self-care Plan: pt to discharge home with his to transport via POV. No discharge needs identified at this time, SW will continue to follow. HAYDEN Chou
[2016-10-15] MEDS ORDERED: Hydrocodone/Acetaminophen PO (12:21)
[2016-10-15] MEDS ORDERED: DIAZ2TAB PO (12:21)
--- NOTE | 2016-10-15 12:25 | PCM.DIMED ---
Discharge Instructions Date of Service Oct 15, 2016 Dates of Hospitalization Oct 13, 2016 at 14:49 Diet Discharge Diet: Heart Healthy, Diabetic Call your provider Call your provider for: Fever or Chills, Shortness of breath, Bleeding, Chest pain, Vomitting, Excessive diarrhea, Weakness (unilateral), Other Patient Instructions Patient Instructions Please note that we have offered General surgeon to come examine your umbilical hernia repair site but you declined. Please note that pain medication hydrocodone will cause sedation, avoid driving.Please stay well hydrated to avoid kidney failure Please avoid alcohol to avoid mcfp liver damage and injury. Please note new medication glimepiride was given in stead of metformin until you see your PCP. Note that this medication may cause hypoglycemia. Check your BG regularly and avoid taking it if not eating or BG too low. Follow-up plan F/U with PCP in one week F/U CMP, Lipase serum levels in 5 days to be sent to PCP PCP to discuss restarting metformin with patient. Manuela Mitchell DO Oct 15, 2016 12:25
[2016-10-15] MEDS ORDERED: GLIM1TAB PO (12:30)
--- NOTE | 2016-10-15 13:14 | CONS ---
[address] [address] CONSULTATION REPORT PATIENT: TERRY DUNBAR : 1960 MR#: [id number] ADMIT: 10/13/2016 JOB ID: [id number] DATE OF SERVICE: 10/15/2016 REFERRING PHYSICIAN: Consultation requested by Dr. Manuela Mitchell. REASON FOR CONSULTATION: The question I am being asked is there an infected umbilical hernia wound. The patient is a 56-year-old male. He states greater than two weeks ago he was in [place], [place] on vacation, apparently developed an incarcerated umbilical hernia which underwent repair with mesh. He was admitted to the hospital with nausea, vomiting, dehydration and abdominal pain. A source for his pain has not clearly been identified. He says he is feeling much better. Since admission, he had a CT scan of his abdomen that showed no obvious evidence of any postoperative complication around his umbilicus. He also had an abdominal ultrasound that showed no stones, gallstones and he had a normal HIDA scan. REVIEW OF SYSTEMS: Again, he is feeling significantly better. He would like to go home today. Review of systems is otherwise negative. PHYSICAL EXAMINATION: Pleasant alert, no distress. Temperature earlier this morning was 38.0, brachial blood pressure 156/90, pulse 85, respiratory rate 18, O2 sat 97% on room air. Abdomen: He has a well-healing umbilical hernia incision. There is no evidence of inflammation. No evidence of cellulitis. No evidence of recurrence. IMPRESSION: His umbilical hernia operation looks very typical for this at this stage. There is no evidence of wound infection. He does not need any special imaging to further assess his umbilical hernia operation. He does not need any surgical intervention. He does not need followup with Surgery.
--- NOTE | 2016-10-15 14:00 | NUR ---
Discharge Patient discharge home via POV, accompanied by his . Seen by Dr. Diaz at 13:00, no surgical need or follow up needed. Discharge notes, instructions and hard copy of new prescription given and well understood by patient. Patient does not need any pain medication refill at this time, claimed he have plenty of prescription at home after his surgery. All belongings given and taken home. Denies any discomfort upon discharge.
--- NOTE | 2016-10-15 14:57 | NUR ---
Social Work- Discharge Data: EMR reviewed. Pt is on day 2 of hospitalization. Pt discharged today. Pt to discharge home with his to transport via POV. No discharge needs. Assessment: Pt who is independent with ADLs and self-care Plan: Pt to discharge home with his to transport via POV. No discharge needs. HAYDEN Chou
--- NOTE | 2016-10-15 21:59 | PCM.DC.MED ---
Discharge Summary Date of Service Oct 15, 2016 Dates of Hospitalization Date of Hospital Admission Oct 13, 2016 at 14:49 Date of Discharge: Oct 15, 2016 Providers: Admitting Physician: Annette Win MD Primary Care Physician: Jin Contreras MD Attending Physician: Manuela Reddy DO Diagnosis at Time of Discharge Diagnosis at Time of Discharge Viral gastroenteritis, diabetes, hypertension, lactic acidosis, elevated lipase Consultations Gen. surgery Procedures XRay, CTs & MRIs . US ABDOMEN, LIMITED IMPRESSION: 1. No sonographic evidence of acute cholecystitis. There is persistent clinical concern for cholecystitis recommend HIDA scan. 2. Fatty infiltrated liver. Dictated by: Jorge Mahmood M.D. on 10/13/2016 X-RAY CHEST ONE VIEW, PORTABLE IMPRESSION: 1. No acute cardiopulmonary disease. Dictated by: Layo Guillen M.D. on 10/13/2016 CT ABDOMEN AND PELVIS WITH CONTRAST IMPRESSION: 1. No definite acute abnormality of the abdomen or pelvis. 2. No bowel obstruction. 3. No free fluid or abscess. Additional findings: -Hepatic steatosis. -Simple left renal cyst. -Small fat containing bilateral inguinal hernias. -Degenerative changes of the imaged spine and pelvic joints. -Proximal anterior left thigh lipoma. Dictated by: Tk Sky M.D. on 10/13/2016 Brief History Mr. Wylie is a 56-year-old male with past medical history of diabetes mellitus type II, hypertension and recent umbilical hernia repair 2 weeks ago presents to the ED secondary to abdominal pain, nausea vomiting diarrhea 2 weeks. Patient was vacationing in [facility] 2 weeks ago when he developed nausea vomiting abdominal pain with the umbilical protrusion. He was seen in the emergency department, admitted into surgery for a umbilical hernia repair with mesh placement. He states that since the surgery he has had persistent abdominal pain with nausea vomiting 3 times per day and diarrhea about 5 times per day. Neither vomitus or stool has shown any evidence of blood he reports them to be watery. He reports a couple of fever/chills over the last 2 weeks at home though has not taken his temperature (no sick contacts at home) reports a mild headache that is persistent as well as ongoing lethargy. Patient had been tolerating this pain completely unmedicated until his forced him to present to the urgent care today which she was subsequently transferred to the emergency department. He, denies visual changes, chest pain, shortness of breath, numbness and tingling in his extremities. He does state he has had a decreased amount of urine over the last 3 days which he attributes to his dehydration and poor oral intake. He has had a upper extremity shaking for the last day or so which she also attributes to his diarrhea. He has not taken any of his home medication secondary to the sickness. No recent antibiotic use. In the emergency department his sodium was 127, magnesium 1.3 with a lactic acid of 2.5. White blood cell count mildly elevated at 10.7. Urinalysis was clear. X-ray negative for acute pathology, EKG showed sinus tachycardia without ST abnormalities. Fluid resuscitation, Zofran and pain meds as well as fluctuance of dictation. He remained tachycardic after several liters of IV fluids with a persistently tender abdomen. Patient was admitted for electrolyte abnormalities secondary to dehydration, possible gastroenteritis and to rule out postsurgical infection. Hospital Course Mr. Wylie is a 56-year-old male with past medical history of diabetes mellitus type II, hypertension and recent umbilical hernia repair 2 weeks ago admitted for persistent nausea vomiting diarrhea with accompanying abdominal pain. Possible postsurgical infection, present on admission. Ruled out Patient had umbilical hernia repair 2 weeks prior with mesh placement, has felt increasingly sore and tender since. At admission, The patient was afebrile with a mildly elevated white count, and the presence of persistent tachycardia as well as a resistant mildly elevated lactic acid, antibiotics were started d/t concern for skin/soft tissue infection. Had an aG of 17->15 on the day of admission. Discontinued Zosyn 3.375 g IV every 8h on 10/16 -Patient is seen by Dr. Cristhian Diaz, who does not feel there is a concern for surgical infection -- At the time of his discharge patient declined a prescription for pain control of pain medication for his postop pain stating that he has enough pain medication at home. RUQ Pain present on admission ongoing improved -- No evidence of cholelithiasis or cholecystitis -- HIDA scan is ordered, normal ejection fraction -- Lipase has normalized yesterday Elavted Lipase, Present on admission under investigation Patient states daily alcohol use -GGT is ordered came back elevated 102 -Lipase normalized on 10/14 [id number] -Patient is counseled on quitting alcohol Metabolic acidosis present on admission resolved -- Likely due to lactic acidosis -- Improved with hydration but it appears that his baseline is 2.1 -- Temporarily held metformin for discharge to see if this would improve his lactic acid levels, patient is put on glimepiride patient to follow-up -- Resolved on the day of discharge -- The patient is counselled on quitting alcohol Possible gastroenteritis, present on admission. Under evaluation Denies other sick contacts though recent hospital admission for umbilical hernia surgery repair concern for C. difficile -Stool PCR negative -Blood cultures are NGTD -Zofran when necessary -- Loperamide when necessary is ordered, this appeared to help his symptoms Lactic acidosis. Present admission. improving -IV fluids as above -Continue to trend, resolved last night with hydration, elevated again the same at 2.1, baseline appears to be 2.1 -Likely causes include metformin usage, and chronic alcohol consumption -- Patient is counseled on quitting alcohol Hyponatremia. Present admission. Resolved - Most likely secondary to dehydration -IV fluids as above Hypertension. Present on admission. Ongoing -Hold home medications as renal function is slightly worse - mg daily, he may restart home medications on discharge as his kidney function has improved Diabetes. Present admission. Ongoing -Correctional scale insulin -A1c 7.6 -Patient is asked to temporarily hold metformin and take glimepiride due to lactic acidosis. We requested the PCP follows up on this. Possible pancreatitis. Present on admission. ruled out -- Pt had elevated lipase but does not meet the criteria for pancreatitis as it is not three times the max Anxiety with musculoskeletal manifestations. Present on admission. Ongoing Per outpatient records diazepam prescribed for muscle spasm -Continue home diazepam High risk medication: Dilaudid, Valium Patient Status: Patient was admitted under inpatient status with expected length of stay greater than two midnights due to severity of presenting symptoms , risk of adverse event, and complexity of treatment plan. CODE STATUS: Patient wishes to be full code Pain Evaluation: Adequate Pain Control GI Prophylaxis: H2 mayra VTE Prophylaxis: Sub-Q Heparin (Unfractionated) Resuscitation Status: CPR: Attempt Resuscitation (heparin) Exam Vital Signs (Last) Date Time Temp Pulse Resp B/P Pulse Ox O2 Delivery O2 Flow Rate FiO2 10/15/16 13:00 36.8 10/15/16 08:30 85 18 156/90 97 Room Air Exam Gen.: No acute distress sitting up in bed, pleasant HEENT: Normocephalic, atraumatic diagnoses remarkable for rhinophyma Heart: Regular rate and rhythm Lungs: Clear to auscultation, no crackles or wheezes Abdomen hyperactive bowel sounds, mild tenderness over the umbilicus otherwise nontender, nondistended Psychiatric: Negative for anxiety Neurological no focal deficits Test 10/13/16 10:50 10/13/16 11:45 10/13/16 17:10 10/14/16 06:42 Prothrombin Time 10.5sec (8.1-12.5) Prothromb Time International Ratio 0.98ratio Hemoglobin A1c 7.7% (4.8-5.6) Urine Color Yellow (YELLOW) Urine Appearance Clear (CLEAR,HAZY) Urine pH 6.0 (5.0-8.0) Urine Specific [place] 1.025 (1.003-1.035) Urine Protein Negativemg/dL (NEG,TRACE) Urine Glucose (UA) >=1000mg/dL (NEGATIVE) Urine Ketones Negativemg/dL (NEGATIVE) Urine Occult Blood Negative (NEGATIVE) Urine Nitrite Negative (NEGATIVE) Urine Bilirubin Negative (NEGATIVE) Urine Urobilinogen Normalmg/dL (NORMAL) Urine Leukocyte Esterase Negative (NEGATIVE) Urine RBC 0-2/hpf (0-2) Urine WBC 0-5/hpf (0-5) Urine Epithelial Cells None/hpf (NONE-MOD) Urine Crystals None seen (NONE SEEN) Urine Bacteria None/hpf (NONE-FEW) Urine Hyaline Casts Occasional/lpf (NONE) Urine Granular Casts None seen (NONE SEEN) Urine Waxy Casts None seen (NONE SEEN) Urine Red Blood Cell Casts None seen (NONE SEEN) Urine White Blood Cell Casts None seen (NONE SEEN) Urine Mucus None seen (None Seen) Urine Trichomonas None seen (NONE SEEN) Urine Yeast None (NONE SEEN) Urinalysis Comment None Urine Culture Reflexed Not indicated Procalcitonin 0.06ng/mL (0.00-0.08) White Blood Count 4.7th/mm3 (3.8-10.1) Red Blood Count 4.04mil/mm3 (4.40-5.80) Hemoglobin 12.8g/dL (13.8-17.2) Hematocrit 36.6% (41.0-50.0) Mean Corpuscular Volume 90.6fL (81-100) Mean Corpuscular Hemoglobin 31.7pg (27.0-35.0) Mean Corpuscular Hemoglobin Concent 35.0% (32.0-37.0) Red Cell Distribution Width 13.3% (12.3-15.4) Platelet Count 184bil/L (150-400) Neutrophils (%) (Auto) 68.3% (40-74) Lymphocytes (%) (Auto) 17.2% (14-46) Monocytes (%) (Auto) 9.4% (4-12) Eosinophils (%) (Auto) 4.5% (0-5) Basophils (%) (Auto) 0.4% (0-3) Erythrocyte Sedimentation Rate 5mm/hr (0-30) Magnesium Level 1.6mg/dL (1.6-2.6) Gamma Glutamyl Transpeptidase 102IU/L (0-65) C-Reactive Protein 0.1mg/dL (0.0-0.5) Test 10/15/16 06:36 10/15/16 07:37 10/15/16 09:41 Sodium Level 135mEq/L (134-144) Potassium Level 3.9mEq/L (3.5-5.2) Chloride Level 99mEq/L (97-108) Carbon Dioxide Level 23mmol/L (18-29) Blood Urea Nitrogen 7mg/dL (6-24) Creatinine 0.98mg/dL (0.76-1.27) Estimat Glomerular Filtration Rate 83mL/min (>59) Glucose Level 195mg/dL (60-99) Calcium Level 8.8mg/dL (8.5-10.1) Total Bilirubin 0.7mg/dL (0.0-1.2) Aspartate Amino Transf (AST/SGOT) 14U/L (0-50) Alanine Aminotransferase (ALT/SGPT) 15U/L (0-44) Alkaline Phosphatase 94U/L (25-150) Total Protein 6.0g/dL (6.4-8.4) Albumin 3.6g/dL (3.4-5.0) Lipase 30U/L (13-60) Lactic Acid Level 2.1mmol/L (0.4-2.0) Hepatitis C Comment . Discharge Medications Discharge Medications Gabapentin (Gabapentin) 300 Mg Capsule 300 MG PO BID (Reported) Glimepiride (Glimepiride) 1 Mg Tablet 1 MG PO DAILYAC Prescribed by: MANUELA REDDY DO As needed ([Hydrocodone/Acetaminophen]) 1 TABLET TABLET 1 TABLET PO Q4H PRN PRN For Moderate Pain Prescribed by: MANUELA REDDY DO Diazepam (Valium) 2 Mg Tablet 2 MG PO TID PRN PRN For Anxiety Prescribed by: MANUELA REDDY DO Ibuprofen (Ibuprofen) 200 Mg Capsule 200 MG PO QID PRN PRN For Pain (Reported) Followup Plan Follow-up plan F/U with PCP in one week F/U CMP, Lipase serum levels in 5 days to be sent to PCP PCP to discuss restarting metformin with patient. Discharge Diet: Heart Healthy, Diabetic Patient Instructions Please note that we have offered General surgeon to come examine your umbilical hernia repair site but you declined. 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 Please note new medication glimepiride was given in stead of metformin until you see your PCP. Note that this medication may cause hypoglycemia. Check your BG regularly and avoid taking it if not eating or BG too low. Time spent Greater than 30 minutes was spent in preparation of discharge with greater than 50% of that time dedicated to patient counseling and coordination of care. Manuela Reddy DO Oct 15, 2016 14:30
[2016-10-16 05:10] LABS: Hepatitis A Antibody IgM Negative (Negative); Hepatitis B Core Antibody IgM Negative (Negative)
== END 2016-10-15 14:05 | disposition home or self-care (01) | DRG 392 ==
LOC: SED 10:27 → MOC 14:49
PROVIDERS: ADMIT Hospitalist; ATTEND Family Medicine
PROC: 4A033R1 Measurement of Arterial Saturation, Peripheral, Percutaneous Approach (ICD-10-PCS; principal; 2016-10-14)
DX: A08.4 Viral intestinal infection, unspecified (principal); E87.1 Hypo-osmolality and hyponatremia; E87.2 Acidosis; E86.0 Dehydration; E11.9 Type 2 diabetes mellitus without complications; I10 Essential (primary) hypertension; F41.9 Anxiety disorder, unspecified; Z98.890 Other specified postprocedural states